=== PATIENT | female | born 1975 | race Caucasian/White ===

== ENCOUNTER 2025-07-14 19:59 | Outpatient (CLI) | payer OTHER, SELFPAY | END 2025-07-14 20:00 | disposition home or self-care (01) | LOC: AMB 07-16 09:41 | PROVIDERS: PCP Physician Assistant; Visit Provider Emergency Medicine Emergency Medical Services | DX: R07.89 Other chest pain (principal); R42 Dizziness and giddiness | CPT/HCPCS: A0425; A0427 ==

== ENCOUNTER 2025-07-14 20:28 | Observation (INO) | payer OTHER, SELFPAY ==
--- OUTSIDE RECORDS SUMMARY | 2025-06-25 15:00 | XMS_ITS | Encounter Summary ---
Author Organization [facility] Address [address] [place] [address] Care Team Providers Care Credit Product Analyst Name Role Phone Hilton Dean P.A.-C. Primary Care Provider Reason for Visit * Reason Comments Upper Respiratory Infection States she w as treated in May for sinus infection, she felt like it did not work was given a dose pack, that helped but feels like it never went away. She states it feels like it moved into her chest, states coughs up green nasty stuff like, noted x 2 days. Encounter Details Date Type Department Care Team (Late st Contact Info) Description 06/25/2025 3:00 PM CDT Office Visit Department of Family Medicine, [facility], in [place], [place] [address] [place] [address] Hilton Dean P.A.-C. [address] [place] [address] Sinusitis Chronic (Primary Dx); Costochondritis; Cough Unspecified Type; Herpes Simplex Labialis Social History Tobacco Use Types Packs/Day Years Used Date Smoking Tobacco: Never Smokeless Tobacco: Never Alcohol Use Standard Drinks/Week Comments Not Currently 0 (1 standard drink = 0.6 oz pure alcohol) occasional-2 drinks since , increases dizziness Humiliation, Afraid, Rape, and Kick questionnair e Answer Date Recorded Within the last year, have y ou been afraid of your partner or ex-partner? No 02/01/2022 Within the last year, have y ou been humiliated or emotionally abused in other ways by your partner or ex-partner? No Within the last year, have y ou been kicked, hit, slapped, or otherwise physically hurt by your partner or ex-partner? No 02/01/2022 Within the last year, have y ou been raped or forced to have any kind of sexual activity by your partner or ex-partner? No 02/01/2022 Hunger Vital Sign Answer Date Recorded Within the past 12 months, y ou worried that your food would run out before you got the money to buy more. Never true 02/02/20 22 Within the past 12 months, t he food you bought just didn't last and you didn't have money to get more. Never true 02/01/2022 PRAPARE - Transportation Answer Date Re corded In the past 12 months, has l ack of transportation kept you from medical appointments or from getting medications? No 11/2021 In the past 12 months, has l ack of transportation kept you from meetings, work, or from getting things needed for daily living? No 02/01/2022 Housing Stability Vital Sign Answer Nathaniel e Recorded In the last 12 months, was t here a time when you were not able to pay the mortgage or rent on time? No 02/01/2022 In the last 12 months, how many places have you lived? 1 02/01/2022 In the last 12 months, was t here a time when you did not have a steady place to sleep or slept in a correction (including now)? No 02/01/2022 Depression Answer Date Recor ded PHQ-9 Total Score (max 27) 1 11/14 Education Answer Date Recorded What is the highest level of school you have completed or the highest degree you have received? 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 - 06/25/2025 3:00 PM CDT SUBJECTIVE CHIEF COMPLAINT / REASON FOR VISIT Denise York is a 49 y.o. female who presents for evaluation of Upper Respiratory Infection (States she was treated in May for sinus infection, she felt like it did not work was given a dose pack, that helped but feels like it never went away. She states it feels like it moved into her chest, states coughs up green nasty stuff like, noted x 2 days.). HISTORY OF PRESENT ILLNESS Denise presented with a persistent cough, primarily worse in the mornings. She has a history of chronic sinusitis and was treated with Augmentin and a Medrol Dosepak approximately one month ago. Currently, her main symptom is cough. OBJECTIVE Vitals: 06/25/25 1449 BP: 107/65 BP Location: Right arm Patient Position: Sitting Cuff Size: Large Pulse: 98 Resp: 18 Temp: 36.3 ??C TempSrc: Temporal SpO2: 98% Weight: 57.6 kg Height: 167 cm Body mass index is 20.65 kg/m??. PHYSICAL EXAMINATION General: Patient appears in no acute distress. ENT: TMs no erythema. Throat no erythema. Neck: No lymphadenopathy. No thyroid masses. Heart: Regular rate and rhythm. No murmurs. Lungs: Clear to auscultation. ASSESSMENT / PLAN #1 Costochondritis I renewed her Flexeril that she uses as needed #2 Sinusitis Chronic We had a good discussion about this we talked about some different treatment options I am going to try some Zithromax because of her persistent cough to treat for possible atypical bacteria. She willcontinue with her chronic nasal decongestants and rinses #3 Cough Unspecified Type I am going to have her take some Zithromax take a Z-Bob as directed if her symptoms worsen or do not improve she will let us know #4 Herpes Simplex Labialis She has a small oral herpes lesion on her upper lip. I will give her some Valtrex a 1000 mg 3 timesa day. If her symptoms worsen or not improve she will let us know Hilton Dean P.A.-C. documented in this encounter Plan of Treatment Not on file documented as of this encounter Visit Diagnoses Diagnosis Sinusitis Chronic- Primary Costochondritis Cough Unspecified Type Herpes Simplex Labialis documented in this encounter Additional Health Concerns Assessment Noted Time PHQ-9 Depression Total Score: 1 11/14/19 20 10:10 AM DIAL MOUNTER documented as of this encounter Care Teams Credit Product Analyst Relationship Specialty Start Date End Date Hilton Dean P.A.-C. [address] [place] [phone] PCP - General Family Medicine 08/12/20 documented as of this encounter
--- OUTSIDE RECORDS SUMMARY | 2025-07-14 20:30 | XMS_ITS | Clinical Summary ---
Author Organization [facility] Address [address] [place] [address] Care Team Providers Care Shot Fireman Name Role Phone Hilton Dean P.A.-C. Primary Care Provider Source Comments Patient records contain information from all sites at [facility]. For routine questions regarding patient records, call [phone] during business hours, M-F 8:00 AM - 5:00 PM Central Time. Record requests for emergency care only can be directed to [phone] at any time.[facility] Allergies Active Allergy Reactions Criticality Noted Date Comments Buspirone Other (see comments) Medium 11/18/2010 dizzy Cat Dander Other (see comments) High 08/24/2011 Sneezing and runny nose. Itchy eyes. Venlafaxine Headache High 05/29/2019 Fluoxetine Other (see comments) Medium 08/31/2011 dizzy House Dust Mite Other (see comments) High 08/24/2011 Sneezing and runny nose. Itchy eyes. Medications * This document contains information received from the source organization and may not represent a complete record from that organization. cetirizine (ZyrTEC) 10 mg tablet Take 10 mg by mouth daily. Active albuterol 90 mcg/actuation inhaler Inhale 2 puffs every 4 (four) hours as needed for wheezing. 8 g 11 5 Active estradioL (Vivelle-Dot) 0.1 mg/[address] 1 patch on the skin 2 (two) times a week. 24 patch 3 5 12/27/19 26 Active levothyroxine 25 mcg tablet Take 1 tablet (25 mcg total) by mouth daily. 90 tablet 3 5 Active cyclobenzaprine (FlexeriL) 5 mg tabletIndicatio ns:Costochondri tis Take 1 tablet (5 mg total) by mouth at bedtime as needed for muscle spasms. 30 tablet 5 Active azithromycin (Zithromax) 250 mg tabletIndicatio ns:Sinusitis Chronic,Cough Unspecified Type Take 2 tabs (500 mg) by mouth today, then 1 tab (250 mg) daily for 4 days. 6 tablet 5 Active cyclobenzaprine (FlexeriL) 5 mg tabletIndicatio ns:Costochondri tis Take 1 tablet (5 mg total) by mouth at bedtime as needed for muscle spasms. 30 tablet 4 06/25/20 25 Discontinue d(Reorder) methylPREDNISol one (MedroL DosePak) 4 mg tablet Take as directed on package. 21 tablet 5 06/25/20 25 Discontinue d(Therapy completed) valACYclovir (Valtrex) 1000 mg tabletIndicatio ns:Herpes Simplex Labialis Take 1 tablet (1,000 mg total) by mouth 3 (three) times a day for 10 days. 30 tablet 5 07/05/20 25 Active Problems Problem Noted Date Diagnosed Date Hyperlipidemia 12/03/2020 Sinusitis Chronic 04/21/2020 Polyposis Nasal 04/21/2020 Migraine Headache Variant 06/06/2019 Hypothyroidism 11/09/2017 Rhinitis Allergic 04/25/2012 Resolved Problems Problem Noted Date Diagnosed Date Resolved Date Pain Chest Precordial 07/21/20212021 Gastroesophageal Reflux Disease 07/21/2021 12/21/2023 Migraine Headache With Typical Aura 06/06/2019 12/03/2020 Dizziness 05/21/2019 12/03/2020 Sinusitis Recurrent 12/12/2018 12/10/19 22 Palpitations 11/09/2017 12/09/2021 Overview (11/09/2017): History of intermittent palpitations. 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 Encounters Date Type Department Care Team Description 06/25/2025 3:00 PM CDT Office Visit Department of [facility], [address] [phone] Hilton Dean, P.A.-C. Sinusitis Chronic (Primary Dx); Costochondritis; Cough Unspecified Type; Herpes Simplex Labialis 06/04/2025 Orders Only Department of [facility], [address] [phone] Hilton Dean, PDallasA.-C. 05/29/2025 Orders Only Department of [facility], [address] [phone] Hilton Dean, P.A.-C. Sinusitis Chronic (Primary Dx); Sinusitis Acute from Last 3 Months Immunizations Immunization Administration Dates Next Due DT, Pediatric 02/05/1979, 6,02/21/1975,1973,1973 HepA Adult 11/02/2015,12/18/2013 HepB (discontinued) adolesce nt/high risk 08/31/2010,05/16/2008,04/18/2008 Influenza, Unspecified 07/09/2017,2015,06/29/2015,2013,07/05/2013,06/21/2012,06/23/2011,1 10/31/2009,08/15/2008,07/28/1998 MMR 04/01/1984,10/29/1974 OPV, Trivalent 02/05/1979, 6,02/21/1975,1973 PCV20 12/25/2024 PPD Test 04/18/2008 PPSV23 12/09/2021 SARS-COV-2 (COVID-19) - MODERNA(Discontinued) 12/21/2023(Deferred: Patient decision) SARS-COV-2 (COVID-19) - PFIZ ER (Discontinued)(12 years or older) 06/25/2021,10/28/2020,09/30/2020 SARS-COV-2 (COVID-19) - PFIZ ER BIVALENT TS(Discontinued)(12 YEARS OR OLDER) 06/21/2022 Td (Adult), adsorbed 07/30/2002 Tdap 09/21/2023,05/13/2013,05/26/2011 Tetanus Toxoid, Adsorbed (discontinued) 07/30/2002,03/29/1988 influenza LAIV (Nasal) (2 ye ars through 49 years) 07/27/2022 influenza trivalent vaccine (6 months and older)(PF) 07/16/2024 influenza vaccine quad (FLUZONE/FLUARIX) (6 months and older)(PF) 07/11/2023,07/27/2021,06/16/2020,2018 Family History Medical History Relation Name Comments No Known Problems Brother 1 Hydrocephalus Brother 2 Spina bifida Brother 2 No Known Problems Brother 3 Coronary artery disease Father Heart attack Father Prostate cancer Father in his 80s Tobacco Use Father Unknown Mother No Known Problems Son 1 No Known Problems Son 2 Relation Name Status Comments Brother 1 Brother 2 (Age 17) Brother 3 Father (Age 86) Mother Son 1 Son 2 Social History Tobacco Use Types Packs/Day Years Used Date Smoking Tobacco: Never Smokeless Tobacco: Never Tobacco Cessation:Counseling Given: No Alcohol Use Standard Drinks/Week Comments Not Currently [...] place to sleep or slept in a assisted (including now)? No 02/01/2022 Depression Answer Date Recor ded PHQ-9 Total Score (max 27) 1 11/14 Education Answer Date Recorded What is the highest level of school you have completed or the highest degree you have received? 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 Not on file Not on file Last Filed Vital Signs Vital Sign Reading [...] Mass Index 20.65 06/25/2025 2:49 PM CDT Plan of Treatment Health Maintenance Due Date Last Done Comments CT Colonography 1973 Colonoscopy 1973 FIT 1973 HIV Screening 1973 Hepatitis C Screening 1973 Zoster Vaccines (1 of 2) 2023 COVID-19 Vaccine (2024-2 6 season) 2025 06/21/2022, 06/25/2021, 10/28/2020, Additional history exists Influenza Vaccine (#1) 2025 , 07/11/2023, 07/27/2022, Additional history exists Mammogram 12/19/2025 12/19/2024, 11/30, 12/15/2022, Additional history exists Lipid (Cholesterol) Screening 12/23/2025, 12/19/2023, 12/06/2022, Additional history exists Thyroid Stimulating Hormone (TSH) test for thyroid function 12/23/2025 12/23/2024, 12/19/2023, 12/06/2022, Additional history exists Fasting Glucose for Diabetes Screening 12/24/2027 12/23/2024, 12/19/2023, 12/06/2022, Additional history exists Cologuard 03/07/2028 03/07/2025, 12/26/2021 Colorectal Cancer Screening 03/07/2028 DTaP,Tdap,and Td Vaccines (9 - Td or Tdap) 09/21/2033 09/21/2023, 05/13/2013, 05/26/2011, Additional history exists IPV Vaccines Completed 02/05/1979, 05/1976, 02/21/1975, Additional history exists Hepatitis B Vaccines Completed 08/31/2010, 05/16/2008, 04/18/2008 Hepatitis A Vaccines Completed 11/02/2015, 12/19/19 14 Depression Screening (Annual PHQ-2) Completed 12/25/2024, 12/25/2024 Pneumococcal vaccine (50+ years) Completed 12/26/19, 12/09/2021 Procedures Procedure Name Priority Date/Time Associated Diagnosis Comments COLOGUARD Routine 03/07/2025 10:00 AM CDT Screening Cancer Colon BASIC METABOLIC PANEL, S/P Routine 12/23/2024 6:53 AM CDT Hypothyroidism Hyperlipidemia Screening Examination Diabetes Mellitus LIPID PANEL, S Routine 12/23/2024 6:53 AM CDT Hypothyroidism Hyperlipidemia Screening Examination Diabetes Mellitus THYROID FUNCTION CASCADE, S Routine 12/23/2024 6:53 AM CDT Hypothyroidism Hyperlipidemia Screening Examination Diabetes Mellitus BI BREAST SCREENING BILATERAL WITH TOMOSYNTHESIS RAD - Routine (most inpatients and all outpatients) 12/19/2024 10:14 AM CDT Screening Mammogram Breast Cancer from Last 3 Months or Most Recently Relevant to Health Maintenance Results * Cologuard - Sent Out Lab (03/07/2025 10:00 AM CDT) Result Negative Negative 03/14/2025 10:16 AM CDT EX[facility] Comment: The Cologuard (TM) test was performed on this specimen. NEGATIVE TEST RESULT. A negative Cologuard result indicates a low likelihood that a colorectal cancer (CRC) or advanced adenoma (adenomatous polyps with more advanced pre-malignant features) is present. The chance that a person with a negative Cologuard test has a colorectal cancer is less than 1 in 1500 (negative predictive value >99.9%) or has an advanced adenoma is less than 5.3% (negative predictive value 94.7%). These data are based on a prospective cross-sectional study of 10,000 individuals at average risk for colorectal cancer who were screened with both Cologuard and colonoscopy. (Blanca Willson al, N Engl J Med 2014;370(14):6938-8140) The normal value (reference range) for this assay is negative. COLOGUARD RE-SCREENING RECOMMENDATION: Periodic colorectal cancer screening is an important part of preventive healthcare for asymptomatic individuals at average risk for colorectal cancer. Following a negative Cologuard result, the [place] Cancer Society and U.S. Multi-Society Task Force screening guidelines recommend a Cologuard re-screening interval of 3 years. References: [place] Cancer Society Guideline for Colorectal Cancer Screening: https://www.cancer.org/cancer/ewrvj-bdszhe-nczwhx/detection- diagnosis-staging/acs-recommendations.html.; Lázaro DK, Drea CR, Basil PaigeK, Colorectal Cancer Screening: Recommendations for Physicians and Patients from the U.S. Multi-Society Task Force on Colorectal Cancer Screening , Am J Gastroenterology 2017; 112:8070-8002. TEST DESCRIPTION: Composite algorithmic analysis of stool DNA-biomarkers with hemoglobin immunoassay. Quantitative values of individual biomarkers are not reportable and are not associated with individual biomarker result reference ranges. Cologuard is intended for colorectal cancer screening of adults of either sex, 45 years or older, who are at average-risk for colorectal cancer (CRC). Cologuard has been approved for use by the U.S. FDA. The performance of Cologuard was established in a cross sectional study of average-risk adults aged 50-84. Cologuard performance in patients ages 45 to 49 years was estimated by sub-group analysis of near-age groups. Colonoscopies performed for a positive result may find as the most clinically significant lesion: colorectal cancer [4.0%], advanced adenoma (including sessile serrated polyps greater than or equal to 1cm diameter) [20%] or non- advanced adenoma [31%]; or no colorectal neoplasia [45%]. These estimates are derived from a prospective cross-sectional screening study of 10,000 individuals at average risk for colorectal cancer who were screened with both Cologuard and colonoscopy. (Blanca Willson al, N Engl J Med 2014;370(14):6201-9584.) Cologuard may produce a false negative or false positive result (no colorectal cancer or precancerous polyp present at colonoscopy follow up). A negative Cologuard test result does not guarantee the absence of CRC or advanced adenoma (pre-cancer). The current Cologuard screening interval is every 3 years. ([place] Cancer Society and U.S. Multi-Society Task Force). Cologuard performance data in a 10,000 patient pivotal study using colonoscopy as the reference method can be accessed at the following location: www.[employer]/results. Additional description of the Cologuard test process, warnings and precautions can be found at www.[employer]an[employer].com. Stool (Stool) 03/07/2025 10: 00 AM CDT 03/08/2025 7:45 AM CDT us Hilton Dean P.A.-C. LAB BODY FLUIDS AND ST OOLS ORDERABLES Final Result [employer] [address] [place] [address] [facility] [address] [place] [address], [address] [place] [address] * (ABNORMAL) Lipid Panel (12/23/2024 6:53 AM CDT) Triglycerides 110 mg/dL 12/23/2024 8:06 AM CDT OW[facility] Comment: ----REFERENCE VALUE---- Normal: <150 mg/dL Borderline High: 150-199 mg/dL High: 200-499 mg/dL Very High: > or =500 mg/dL Cholesterol, Total 200(H) mg/dL 2024 8:06 AM CDT OWAT Comment: ----REFERENCE VALUE---- Desirable: < 200 mg/dL Borderline High: 200 - 239 mg/dL High: > or = 240 mg/dL Cholesterol, LDL, Calculated 133(H) mg/dL 12/23/2024 8:06 AM CDT OWAT Comment: ----REFERENCE VALUE---- Desirable: <100 mg/dL Above Desirable: 100-129 mg/dL Borderline High: 130-159 mg/dL High: 160-189 mg/dL Very High: >=190 mg/dL ----ADDITIONAL INFORMATION---- LDL cholesterol calculated using the Bolden/NIH equation. Cholesterol, HDL 47(L) >=50 mg/dL 12/24/19 8:06 AM CDT OWAT Cholesterol, Non-HDL, Calculated 153 mg/dL 12/23/2024 8:06 AM CDT OWAT Comment: ----REFERENCE VALUE---- Desirable: <130 mg/dL Above Desirable: 130-159 mg/dL Borderline High: 160-189 mg/dL High: 190-219 mg/dL Very High: > or =220 mg/dL Fasting (8 HR or more) Yes 12/23/2024 6:53 AM CDT OW[facility] Blood (Blood, Venous) 12/23/2024 6:53 AM CDT 12/23/2024 7:25 AM CDT us Hilton Dean P.A.-C. LAB BLOOD ADD-ON Final Result [facility] [address] [place] [id number], [facility] [place] [address] [place] [address] * Thyroid Function Weber (12/23/2024 6:53 AM CDT) TSH, Sensitive 2.3 0.3 - 4.2 mIU/L 12/23/2024 10:33 AM CDT OW[facility] Blood (Blood, Venous) 12/23/2024 6:53 AM CDT 12/23/2024 7:24 AM CDT us Hilton AllanTessie. LAB BLOOD ADD-ON Final Result [facility] [address] [place] [address], [facility] OWAT [facility] [place] [address] [place] [address] * Basic Metabolic Panel (12/23/2024 6:53 AM CDT) Potassium, P 3.9 3.6 - 5.2 mmol/L 12/23/2024 8:06 AM CDT OWAT Sodium, P 138 135 - 145 mmol/L 12/23/2024 8:06 AM CDT OWAT Chloride, P 100 98 - 107 mmol/L 12/23/2024 8:06 AM CDT OWAT Bicarbonate, P 25 22 - 29 mmol/L 12/23/2024 8:06 AM CDT OW[facility] Anion Gap, P 13 7 - 15 12/23/2024 8:06 AM CDT OWAT BUN (Blood Urea Nitrogen), P 18 6 - 21 mg/dL 12/23/2024 8:06 AM CDT OWAT Creatinine 0.75 0.59 - 1.04 mg/dL 12/23/2024 8:06 AM CDT OWAT Estimated GFR (eGFR) >90 >=60 mL/min/BSA 12/23/2024 8:06 AM CDT OWAT Comment: Estimated GFR calculated using the 2020 CKD_EPI creatinine equation. Calcium, Total, P 9.3 8.6 - 10.0 mg/dL 12/23/2024 8:06 AM CDT OWAT Glucose, P 107 70 - 140 mg/dL 12/23/2024 8:06 AM CDT OW[facility] Blood (Blood, Venous) 12/23/2024 6:53 AM CDT 12/23/2024 7:25 AM CDT us Hilton Dean P.A.-C. LAB BLOOD ADD-ON Final Result [facility] [address] [place] [address], [place] OW[facility] [place] [address] [place] [address] * BI Breast Screening Bilateral with Tomosynthesis (12/19/2024 10:14 AM CDT) Anatomical Region Laterality Modality Breast, Breast Imaging RST L OS, Breast Imaging ARZ LOS, Breast Imaging FLA LOS Bilateral Mammography Impressions 12/19/2024 12:54 PM CDT Negative. RECOMMENDATION: Annual Screening Mammogram ASSESSMENT: BI-RADS: 1: Negative. Narrative 12/19/2024 12:54 PM CDT EXAM: BI BREAST SCREENING BILATERAL WITH TOMOSYNTHESIS Current study was evaluated with a Computer Aided Detection (CAD) system. INDICATION: Screening mammogram. COMPARISON: Prior exam(s) were available and reviewed for comparison. DENSITY: c. The breast(s) are heterogeneously dense, which may obscure small masses. FINDINGS: No mammographic findings of malignancy. Procedure Note Randy Riggs M.D. - 12/19/2024 EXAM: BI BREAST SCREENING BILATERAL WITH TOMOSYNTHESIS Current study was evaluated with a Computer Aided Detection (CAD) system. INDICATION: Screening mammogram. COMPARISON: Prior exam(s) were available and reviewed for comparison. DENSITY: c. The breast(s) are heterogeneously dense, which may obscuresmall masses. FINDINGS: No mammographic findings of malignancy. IMPRESSION: Negative. RECOMMENDATION: Annual Screening Mammogram ASSESSMENT: BI-RADS: 1: Negative. Hilton Dean P.A.-C. IMG BI PROCEDURES Keiko l Result from Last 3 Months or Most Recently Relevant to Health Maintenance Insurance [employer] Care Teams Shot Fireman Relationship Specialty Start Date End Date Hilton Dean P.A.-C. [address] [place] [address] [employer] tanner [phone] PCP - General Family Medicine 08/12/20
--- OUTSIDE RECORDS SUMMARY | 2025-07-14 20:30 | XMS_ITS | Encounter Summary ---
Author Organization [facility] Address [address] [place] [address] Care Team Providers Care Forklift Truck Mechanic Name Role Phone Hilton Dean P.A.-C. Primary Care Provider Encounter Details Date Type Department Care Team (Late st Contact Info) Description 05/29/2025 Orders Only Department of Family Medicine, [facility], in [place], [place] [address] [place] [address] Hilton Dean P.A.-C. [address] [place] [address] Sinusitis Chronic (Primary Dx); Sinusitis Acute Social History Tobacco Use Types Packs/Day Years [...] place to sleep or slept in a detention (including now)? No 02/01/2022 Depression Answer Date Recor ded PHQ-9 Total Score (max 27) 1 11/14 Education Answer Date Recorded What is the highest level of school you have completed or the highest degree you have received? 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 [address] [place] [address] [place] [id number] PCP - General Family Medicine 08/12/20 documented as of this encounter
--- OUTSIDE RECORDS SUMMARY | 2025-07-14 20:30 | XMS_ITS | Clinical Summary ---
Author Organization [facility] Address [address] [place] [id number] Care Team Providers Care Bindery Chief Name Role Phone Ember Mckenzie NP Primary Car e Provider Allergies Active Allergy Reactions Criticality Noted Date Comments Buspirone Dizziness 12/09/2006 Cats (Fur, Dander, Saliva) 0 Dust Mites 09/07/2010 Fluoxetine Dizziness 08/31/2011 (Prozac) Medications fluticasone, 50 mcg per actuation, nasal (FLONASE) 50 mcg/Actuation nasal sprayIndication s:Allergic rhinitis, cause unspecified Inhale 2 Sprays into both nostrils once daily. 1 Bottle 11 1 Active levothyroxine (SYNTHROID) 25 mcg tablet TAKE ONE TABLET DAILY 30 tablet 1 2 Active montelukast (SINGULAIR) 10 mg tablet Take 10 mg by mouth at bedtime. As needed Active albuterol HFA (VENTOLIN HFA) 90 mcg/actuation inhaler Inhale 2 Puffs by mouth 4 times daily if needed. Active cetirizine (ZYRTEC) 10 mg tablet Take 10 mg by mouth once daily if needed. As needed Active ibuprofen (ADVIL; MOTRIN) 600 mg tablet Take 1 tablet by mouth every 6 hours. Maximum of 3200 mg in 24 hours. 40 tablet 5 Active HYDROcodone-damien taminophen, 5-325 mg, (NORCO) per tablet Take 1-2 tablets by mouth every 4 hours if needed for Pain. Max acetaminophen dose: 4000mg in 24 hrs. 30 tablet 0 5 Active triamcinolone (ARISTOCORT; KENALOG) 0.1 % cream Apply topically to affected area(s) on the neck, arms, legs, trunk and back 2 times daily for 2 weeks. 60 g 12/30/2015 10:47 AM CDT 6 Active fluconazole (DIFLUCAN) 150 mg tablet Take 1 tablet (150 mg total) by mouth once for 1 dose. 1 tablet 8 Active levothyroxine (SYNTHROID) 25 mcg tablet Take 1 tablet (25 mcg total) by mouth daily. 90 tablet 8 Active amoxicillin-cla vulanate 875-125 mg tablet (AUGMENTIN) Take 1 tablet by mouth 2 (two) times a day for 10 days. 20 tablet 8 Active levothyroxine (SYNTHROID) 25 mcg tablet Take 1 tablet by mouth once daily. 90 tablet 3 01/17/2018 9:38 AM CDT 8 Active methylPREDNISol one (MEDROL DOSEPAK) 4 mg tablet Take by mouth as directed on package for 6 days. 21 tablet 8 Active cephalexin (KEFLEX) 500 mg capsule Take 1 capsule by mouth 3 times daily for 7 days. 21 capsule 05/29/2018 12:10 PM CDT 8 Active azithromycin (ZITHROMAX) 500 mg tablet Take 1 tablet (500 mg total) by mouth daily for 5 days. 5 tablet 09/20/2018 12:41 PM TYPE CASTER 8 Active benzonatate (TESSALON) 100 mg capsuleIndicati ons:Cough Take 1 capsule by mouth 3 times daily if needed for cough. 42 capsule 10/24/2018 11:30 AM TYPE CASTER 9 Active azithromycin (ZITHROMAX) 250 mg tablet Take 500 mg (2 tablets) by mouth the first day then 250 mg (1 tablet) by mouth for 4 more days. 6 tablet 9 Active ondansetron (ZOFRAN) 4 mg tablet Take 1 tablet by mouth every 8 hours if needed for nausea or vomiting for up to 7 days. 20 tablet 11/02/2018 5:13 PM TYPE CASTER 9 Active cephalexin (KEFLEX) 500 mg capsule Take 1 capsule by mouth every 6 hours for 10 days. 40 capsule 11/09/2018 3:55 PM TYPE CASTER 9 Active sertraline (ZOLOFT) 50 mg tablet Take one-half tablet by mouth once daily for a week. Then increase to 1 tablet once daily if tolerated. 30 tablet 1 9 Active sertraline (ZOLOFT) 25 mg tabletIndicatio ns:Anxiety disorder Take 1 tablet (25 mg total) by mouth daily. 1/2 tab daily for a week the increase to a full tab daily if tolerated 30 tablet 1 01/04/2019 1:24 PM CDT 9 Active budesonide (PULMICORT RESPULES) 0.5 mg/2 mL neb suspension Add 1 respule to 8 ounces of saline and irragate each side of nose twice daily as directed. 120 mL 11 9 Active budesonide (PULMICORT RESPULES) 0.5 mg/2 mL neb suspension Administer 2 mL into affected nostril(s) 2 times a day. Add 1 ampule to 8 ounces saline and irrigate each side of nose twice daily as directed. 120 mL 11 05/15/2020 4:25 PM CDT 0 Active ammonium lactate 12% (LACHYDRIN) 12 % cream Apply 1 application topically 2 (two) times a day. 385 g 2 0 Active naproxen (NAPROSYN) 500 mg tabletIndicatio ns:Chondrocosta l junction syndrome (tietze) Take 1 tablet by mouth 2 times daily if needed for pain. 60 tablet 02/04/2020 12:05 PM CDT 0 Active fluticasone (50 mcg per actuation) nasal solution (FLONASE) Inhale 2 Sprays into both nostrils once daily if needed for rhinitis or allergies. 48 g 3 02/04/2020 12:05 PM CDT 0 Active predniSONE (DELTASONE) 10 mg tablet Take 3 tablets by mouth daily for 2 days, 2 tablets daily for 3 days, 1 tablet daily for 3 days, 1/2 tablet daily for 3 days. 18 tablet 03/03/2020 1:41 PM CDT 0 Active amoxicillin-cla vulanate 875-125 mg tablet (AUGMENTIN) Take 1 tablet by mouth 2 times daily with meals. 20 tablet 05/15/2020 1:44 PM CDT 0 Active cefdinir (OMNICEF) 300 mg capsule Take 1 capsule (300 mg total) by mouth every 12 (twelve) hours for 10 days. 20 capsule 0 Active predniSONE (DELTASONE) 20 mg tablet Take 2 tablets (40 mg total) by mouth once daily with breakfast for 7 days. 14 tablet 08/26/2020 2:17 PM TYPE CASTER 0 Active budesonide (PULMICORT RESPULES) 0.5 mg/2 mL neb suspension Administer 2 mL (0.5 mg total) into nostril(s) daily. Add 1 respule to 8 ounces saline and irrigate each side of nose twice daily as directed. 120 mL 11 03/30/2021 11:41 AM CDT 1 Active triamcinolone 0.025% topical (ARISTOCORT) 0.025 % cream Apply 1 application topically 2 times a day. 45 g 1 05/07/2021 1:32 PM CDT 1 Active cyclobenzaprine (FLEXERIL) 10 mg tablet Take 1 Tablet (10 mg) by mouth 3 times daily if needed for muscle spasms 15 Tablet 05/07/2021 1:32 PM CDT 1 Active amoxicillin-cla vulanate 875-125 mg tablet (AUGMENTIN) Take 1 tablet by mouth 2 (two) times a day. 20 Tablet 08/05/2022 4:10 PM CDT 2 Active predniSONE (DELTASONE) 20 mg tablet Take 2 tablets (40 mg total) by mouth daily. 10 Tablet 08/05/2022 4:10 PM CDT 2 Active montelukast (SINGULAIR) 10 mg tablet Take 1 tablet (10 mg total) by mouth at bedtime. 90 Tablet 01/26/2023 4:12 PM CDT 3 Active predniSONE (DELTASONE) 20 mg tablet Take 2 tablets (40 mg total) by mouth daily. 10 Tablet 01/26/2023 4:12 PM CDT 3 Active Active Problems Problem Noted Date Diagnosed Date Irregular menses 11/25/2014 Palpitations 11/13/2008 Unspecified hypothyroidism 01/03/2008 Allergic rhinitis, cause unspecified 04/27/2007 Unspecified asthma(493.90) 04/27/2007 Overview (04/27/2007): rare problems Mixed hyperlipidemia 10/02/1996 Anxiety state, unspecified Immunizations Immunization Administration Dates Next Due AMB Influenza, IIV3 (Age >=3 years)(Flu Clinic Only) 08/15/2008 DTP 02/05/1979, 6,02/21/1975,1973,1973 Hepatitis B (Adult) 08/31/2010,05/16/2008,2007 Influenza Virus, Unspecified 07/22/2014,07/08/20 09 Influenza, IIV3 (Age >=3 years) 06/21/2012,08/31,07/28/1998 MMR 04/01/1984,10/29/1974 Oral Polio Vaccine 02/05/1979, 6,02/21/1975,1973 Td (Age >=7 Years) 07/30/2002,03/29/1988 Tuberculin (PPD) 04/18/2008 Family History Medical History Relation Name Comments Asthma Brother 1 Other Brother 2 spina bifida Heart Disease Father d 86 yr old 67 yr old at patient's Unknown Mother b 1951 22yr old at patient's Relation Name Status Comments Brother 1 Brother 2 Father Mother Social History Tobacco Use Types Packs/Day Years Used Date Smoking Tobacco: Never Smokeless Tobacco: Never Tobacco Cessation:Counseling Given: Yes Comments: smokes outside Alcohol Use Standard Drinks/Week Comments Yes 0.8 (1 standard drink = 0.6 oz p ure alcohol) occ Comments No Sex and Gender Information Value Date Recorded Sex Assigned at Not on file Legal Sex Female 5:24 AM TYPE CASTER Gender Identity Not on file Sexual Orientation Not on file 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 Not on file Not on file Not on file Obstetrics History Para Term AB IAB SAB Ectopic Multiple Livin g Live Births 5 3 3 0 2 1 1 0 0 3 Date Outcome GA Total Labor Labor/2nd/3rd Weight Sex Type Anes PTL Stephanie A1 A5 Name Clin Term Term Term IAB SAB Comments x3 Last Filed Vital Signs Vital Sign Reading Time Taken Comments Blood Pressure 112/4 11/10/2018 1:24 PM TYPE CASTER Pulse 90 11/10/2018 1:24 PM TYPE CASTER Temperature 36.9 C (98.5 F) 11/26/2014 8:30 AM TYPE CASTER Respiratory Rate 16 11/26/2014 8:30 AM TYPE CASTER Oxygen Saturation 97% 11/10/2018 1:24 PM TYPE CASTER Inhaled Oxygen Concentration - - Weight 60.3 kg (133 lb) 11/10/2018 1:24 PM TYPE CASTER Height 167 cm (5' 5.75) 11/21/2014 8:02 AM TYPE CASTER Body Mass Index 21.63 11/21/2014 8:02 AM TYPE CASTER Plan of Treatment Health Maintenance Due Date Last Done Comments Depression screening for age 12+ 1985 HIV for age 15-65 1988 BMI (ht and wt on same day) for age 18+ 1991 Hepatitis C screening for ag e 18-79 1991 Tetanus booster 07/30/2012 07/30/2002, 03/29/1988 Pap test for age 21-65 05/19/2014 1, 05/19/2011, 05/06/2010, Additional history exists Colonoscopy through age 75 2018 Lipids for age 45-75 2018 04/29/2010, 05/14/2009, 03/04/2008, Additional history exists Mammogram for age 45-75 2018 Pneumococcal series for age 50+ (1 of 1 - PCV) 2023 Zoster (shingles) series for age 50+ (1 of 2) 2023 COVID-19 vaccine series ( - 2024- season) 2025 06/25/2021, 10/28/2020, 09/30/2020 Influenza Vaccine (#1) 2025 4, 06/21/2012, 08/31/2010, Additional history exists RSV vaccine for adults or (1 - 1-dose 75+ series) 2048 Hepatitis B series for 19+ Completed 08/31, 05/16/2008, 04/18/2008 Medical Devices Implanted Type Area Work Study Student Device Identifier Shelf Expiration Date Model / Serial / Lot Sys Control Essure Perm - [id number] Implanted:Qty: 1 on 09/02/2011 at [facility] [employer] 04/30/2014 [id number] / / [id number] Stent Ent Mini Steroid-Releas ing [employer] Bio[employer] - [id number] Implanted:Qty: 4 on 11/25/2014 by Robert Conde MD at [facility] Bilateral : Nose [employer] 02/23/2016 [id number]# / / [id number] Description:implant sites: 1 - left frontal; 1 - left sphenoid; 1 - right sphenoid; 1 - right frontal Stent Ent Reg Steroid-Releas ing [employer]orb - [id number] Implanted:Qty: 1 on 11/25/2014 at [facility] Left: Nose [employer] 02/10/2016 [id number] / / [id number] Description:implanted into l eft ethmoid Procedures Procedure Name Priority Date/Time Associated Diagnosis Comments GYNECOLOGICAL PANEL Timed 05/19/2011 1 0:30 AM CDT LIPID PANEL W REFLEX MEASURED LDL Routine 04/29/2010 8:44 AM CDT HYPERLIPIDEMIA MIXED from Last 3 Months or Most Recently Relevant to Health Maintenance Results * GYNECOLOGICAL PANEL (05/19/2011 10:30 AM CDT) CYTOLOGY CYTOPATHOLOGY REPORT [facility] Status: Final Status [id number] CLINICAL INFORMATION Last Date of LMP :April 30, 2011 Last Pap Date :05/2010 Last Pap Result :NORMAL [place]/Bx done today :No HPV Request :HPV and PAP. See Separate Report. SPECIMEN SOURCE :Cervical/vaginal ThinPrep Vial, screening SPECIMEN ADEQUACY :Satisfactory for evaluation Endocervical component present. INTERPRETATION/RES ULT Negative for intraepithelial lesion or malignancy (NIL) Cytology 1st Screener :albert Signed by :albert This specimen was screened by the FDA approved ThinPrep Imaging System and manually reviewed. NOTE: The Pap test is a screening technique, not a diagnostic procedure. It is used primarily to screen for squamous cancers and precursor lesions. Published studies have shown that it is subject to both false negative and false positive results. The pap test should not be used as the sole means to diagnose or exclude pre-malignant and malignant lesions. COLLECTED:05/19/11 ACCESSIONED: 05/20/11 SIGNED: 05/24/11 [facility] [place] CODE NIL [facility] 05/19/2011 10:3 0 AM CDT 05/20/2011 10:30 AM CDT us Ember Daly MD PATHOLOGY/CYTOLOGY Final Resu lt [facility] INTERNAL ZIP [id number] [place] [id number] * LIPID PANEL W REFLEX MEASURED LDL (04/29/2010 8:44 AM CDT) CHOLESTEROL,TOTAL 180 110 - 199 mg/dL [facility] TRIGLYCERIDES 120 <150 mg/dL [facility] HDL CHOLESTEROL 53 >40 mg/dL [facility] CHOL/HDL RATIO 3.40 <4.51 [facility] LDL CHOLESTEROL 103 <131 mg/dL [facility] PATIENT STATUS Fasting [facility] Blood specimen (specimen) BLOOD SPECIMEN / Unknown 04/29/2010 8:44 AM CDT 04/29/2010 8:40 AM CDT Nick Grant MD CHEMISTRY Final Re sult [facility] [address] [place] [address] from Last 3 Months or Most Recently Relevant to Health Maintenance Insurance [employer] PLAN [facility] Advance Directives * Full Code (Latest Code Status on File) Date Activated Date Inactivated Comments 11/25/2014 9:13 AM 11/26/2014 1:05 PM * Full Code Date Activated Date Inactivated Comments 05/22/2013 10:01 AM 05/22/2013 4:08 PM * Full Code Date Activated Date Inactivated Comments 09/02/2011 5:55 AM 09/02/2011 12:06 PM Care Teams Bindery Chief Relationship Specialty Start Date End Date Ember Mckenzie NP [address] [facility] [place] [address] PCP - General Nurse Practitioner 11/07/16
--- OUTSIDE RECORDS SUMMARY | 2025-07-14 20:30 | XMS_ITS | Encounter Summary ---
Author Organization [facility] Address [address] [place] [address] Care Team Providers Care Wall And Floor Tiler Name Role Phone Hilton Dean P.A.-C. Primary Care Provider Encounter Details Date Type Department Care Team (Late st Contact Info) Description 06/04/2025 Orders Only Department of Family Medicine, [facility], in [place], [place] [address] [place] [address] Hilton Dean P.A.-C. [address] [place] [address] Social History Tobacco Use Types Packs/Day Years [...] place to sleep or slept in a usp (including now)? No 02/01/2022 Depression Answer Date Recor ded PHQ-9 Total Score (max 27) 1 11/14 Education Answer Date Recorded What is the highest level of school you have completed or the highest degree you have received? 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 CASEY: [id number] [address] [place] [id number] PCP - General Family Medicine 08/12/20 documented as of this encounter
[2025-07-14 20:33] VITALS: BP 138/89; PULSE 109; RESP 18; TEMP 37.1; O2SAT 97; BMI 20.7
--- NOTE | 2025-07-14 21:40 | ED.GENADULT ---
HPI - General Adult General Chief complaint: Anxiety Stated complaint: chest pain Time Seen by Provider: 07/14/25 20:34 Related Data Home Medications ?Medication ?Instructions ?Recorded ?Confirmed levothyroxine 25 mcg tablet 25 mcg PO DAILY 07/14/25 07/14/25 Allergies Allergy/AdvReac Type Severity Reaction Status Date / Time buspirone (From BuSpar) AdvReac Dizziness Verified 07/14/25 20:39 fluoxetine (From Prozac) AdvReac Dizziness Verified 07/14/25 20:39 venlafaxine (From Effexor) AdvReac Dizziness Verified 07/14/25 20:39 Exam Const: Vital Signs, click to edit/add: Vital Signs - 24 hr 07/14/25 20:33 07/14/25 22:36 Temperature 98.7 F Pulse Rate [Pulse Oximeter] 109 H 78 Respiratory Rate 18 16 Blood Pressure [Ri ght Upper Arm] 138/89 138/90 H Pulse Oximetry 97 98 Oxygen Delivery Me thod Room Air Room Air Course Vital Signs Vital signs: Initial Vital Signs Temperature 98.7 F 07/14/25 20:33 Temperature Source Temporal Artery Scan 07/14/25 20:33 Pulse Rate 109 H 07/14/25 20:33 Respiratory Rate 18 07/14/25 20:33 Blood Pressure 138/89 07/14/25 20:33 Blood Pressure Mean 105 07/14/25 20:33 Blood Pressure Position Sitting 07/14/25 20:33 Pulse Oximetry 97 07/14/25 20:33 Oxygen Delivery Method Room Air 07/14/25 20:33 Vital Signs Temperature 98.7 F 07/14/25 20:33 Pulse Rate 109 H 07/14/25 20:33 Respiratory Rate 18 07/14/25 20:33 Blood Pressure 138/89 07/14/25 20:33 Pulse Oximetry 97 07/14/25 20:33 Oxygen Delivery Method Room Air 07/14/25 20:33 Temperature 98.7 F 07/14/25 20:33 Pulse Rate 78 07/14/25 22:36 Respiratory Rate 16 07/14/25 22:36 Blood Pressure 138/90 H 07/14/25 22:36 Pulse Oximetry 98 07/14/25 22:36 Oxygen Delivery Method Room Air 07/14/25 22:36 Medications Administered Medications: Discontinued Medications Generic Name Dose Route Start Last Admin Trade Name Freq PRN Reason Stop Dose Admin Meclizine HCl 25 mg 07/14/25 21:21 07/14/25 22:29 Meclizine Hcl 25 Mg Tablet PO 07/14/25 21:22 25 mg ONCE ONE Administration Ondansetron HCl 4 mg 07/14/25 21:21 07/14/25 22:29 Ondansetron Odt 4 Mg Tab PO 07/14/25 21:22 4 mg ONCE ONE Administration Medical Decision Making MDM Narrative Medical decision making narrative: This patient comes in reporting vertigo and heart palpitations with some brief chest discomfort. She also has weakness in the proximal muscles of her legs bilaterally. Her neurologic exam is completely normal except she was unable to raise either leg off of the bed. She does not report any dysuria or altered bowel symptoms and has no saddle anesthesia. I did check sphincter tone which appeared to be normal. I did have the patient attempt to get up and ambulate. She was able to stand but did so with much difficulty. I spoke with the neurologist on-call at [facility] who recommended MRI of the head, lumbar spine and thoracic spine in the morning. The patient did receive oral doses of Zofran and meclizine. She is not reporting any further vertigo symptoms. I did speak with the hospitalist on-call here, Dr. Xiao, who agrees to her admission for these plans to occur. Lab Data Labs: Lab Results 07/14/25 07/14/25 Range/Units 21:31 22:05 WBC 9.39 (4.50-11.00) K/uL RBC 4.04 (4.00-5.20) m/uL Hgb 12.3 (12.0-16.0) gm/dL Hct 37.7 (33.0-51.0) % MCV 93 (80-100) fL MCH 30 (26-34) pg MCHC 33 (32-36) gm/dL RDW Coeff of Caleb 12.6 (11.5-15.5) % Plt Count 322 (140-440) K/uL Neut % (Auto) 56.8 (42.0-72.0) % Lymph % (Auto) 28.5 (20-44) % Bertie % (Auto) 9.2 (0.0-11.0) % Eos % (Auto) 4.5 (0.0-7.0) % Baso % (Auto) 0.4 (0.0-3.0) % Neut # (Auto) 5.33 (1.7-7.0) K/uL Lymph # (Auto) 2.68 (0.90-2.90) K/uL Bertie # (Auto) 0.90 (0.00-0.90) K/UL Eos # (Auto) 0.42 (0.00-0.50) K/uL Baso # (Auto) 0.04 (0.00-0.30) K/uL Abs Immat Gran (auto) 0.06 (0.00-0.30) K/uL Imm/Tot Granulo (auto) 0.6 % Sodium 132 L (135-149) mmol/L Potassium 3.7 (3.6-5.1) mmol/L Chloride 102 (96-114) mmol/L Carbon Dioxide 24 (20-32) mmol/L Anion Gap 6 L (7-15) mEq/L BUN 14 (7-30) mg/dL Creatinine 0.6 (0.5-1.5) mg/dL Estimated Creat Clear 101.67 Estimated GFR 109 ml/min Glucose 119 H (60-115) mg/dL Calcium 8.4 (8.4-10.6) mg/dL C-Reactive Protein < 0.5 L (0.5-1.0) mg/dL POC Troponin I 0.01 (0.01-0.04) ng/ml ECG Data Attestation: I personally reviewed and interpreted this ECG as follows: Interpretation: Sinus tachycardia, rate 101 beats per minute. There are no specific ST or T-wave abnormalities. Discharge Plan Discharge Clinical Impression: Weakness, Vertigo Patient Disposition: Admitted As Observation Condition: Unchanged
[2025-07-14 22:23] LABS: Troponin, Point-of-Care* 0.01 ng/ml (0.01-0.04)
[2025-07-14] MEDS: MECLIZINE HCL 25 MG TABLET PO (22:29)
[2025-07-14] MEDS: ONDANSETRON ODT 4 MG TAB PO (22:29)
[2025-07-14 22:30] LABS: Hematocrit* 37.7 % (33.0-51.0); Hemoglobin* 12.3 gm/dL (12.0-16.0); Immature Granulocytes Abs Auto 0.06 K/uL (0.00-0.30); Immature Granulocytes Pct Auto 0.6 %; Lymphocytes Absolute Auto 2.68 K/uL (0.90-2.90); Mean Corpuscular HGB Conc 33 gm/dL (32-36); Mean Corpuscular Hemoglobin 30 pg (26-34); Mean Corpuscular Volume 93 fL (80-100); RDW Coefficient of Variation % 12.6 % (11.5-15.5); Red Blood Count* 4.04 m/uL (4.00-5.20); White Blood Count* 9.39 K/uL (4.50-11.00)
[2025-07-14 22:32] LABS: Slide Review Reflex No
[2025-07-14 22:33] LABS: Chloride* 102 mmol/L (96-114); Sodium* 132 mmol/L (135-149)
[2025-07-14 22:34] LABS: Potassium* 3.7 mmol/L (3.6-5.1)
[2025-07-14 22:36] VITALS: BP 138/90; PULSE 78; RESP 16; O2SAT 98
[2025-07-14 22:36] LABS: Blood Urea Nitrogen* 14 mg/dL (7-30); Creatinine* 0.6 mg/dL (0.5-1.5); Est. Creatinine Clearance* 101.67; Estimated Glomerular Filt Rate 109 ml/min
[2025-07-14 22:37] LABS: Anion Gap 6 mEq/L (7-15); Calcium* 8.4 mg/dL (8.4-10.6); Carbon Dioxide* 24 mmol/L (20-32); Glucose* 119 mg/dL (60-115)
[2025-07-14 23:00] LABS: Creatine Kinase* 69 U/L (41-117)
[2025-07-14 23:25] VITALS: BP 126/63; PULSE 67; RESP 16; TEMP 36.6; O2SAT 98
--- NOTE | 2025-07-15 00:02 | PM.IMHP1 ---
Assessment and Plan Assessment and plan (1) Weakness: Problem comment: - Bilateral hip flexor weakness associated with pain and tightness in anterior thighs near groin. Symptoms appear to be fluctuating as I witnessed her able to lift both legs off the floor and hold them up above a 90 angle for 20 seconds while getting out of bed. CK, troponin, BMP, CRP, WBC reassuring. - Differential includes central versus peripheral process versus conversion disorder vs other. - Tick borne panel ordered - Due to pain at back of head/neck now (no nuchal rigidity), and nurse reported patient was off when talking about her family and situation, will obtain CT head without contrast tonight. If she becomes febrile or develops nuchal rigidity, could consider LP or repeat neuro consult as well. Neuro recommended MR brain wo contrast and MRA thoracic and lumbar spine in am. I was able to order MR brain, but thoracic and lumbar MRA will need to be discussed with radiology in am before ordering. - q4h neurochecks - PT and OT consulted Status: Acute (2) Vertigo: Problem comment: Resolved with meclizine and zofran. I have ordered these prn. Obtain imaging as above. Status: Acute (3) Hypothyroidism: Problem comment: Continue home dose of levothyroxine. Status: Chronic Hospitalist- H&P: HPI History of Present Illness Time Seen by Provider: 00:11 Date Seen: 07/15/25 Chief complaint: chest pain Narrative: Denise York is a 49 year old female with h/o anxiety and hypothyroidism who presented through the ER for bilateral thigh flexor weakness. 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 She has noted a little bit of low back pain for the last 4-5 days that started radiating off to the left today and then down her left thigh. Her is also in the hospital here and she brought him a few things this afternoon after work and then went home to have supper. She laid down at 7:00 p.m. just after supper but started having vertigo so she went outside and sat on a bench out front and called her son. He came around 715 or 720 and she tried to stand up to Greet him, but was unable to get off the bench feeling that her anterior thighs were tight and weak. Then she panicked and started feeling palpitations. The panicky feeling and palpitations have resolved, but she continues to have difficulty lifting her legs off the bed. She said they feel very heavy. She denies any recent travel. She does golf outside frequently, almost daily. Last week she went for a hike at the [employer]. She denies any numbness or tingling, difficulty with urination or bowel movements. Dr. Juan from the emergency department reported to me over the phone that he had spoken with [facility] neurologist on-call who recommended an MRI brain without contrast in the morning and an MRA of the thoracic and lumbar spines in the morning as well as a rectal exam; Dr. Martinez told me that he did the rectal exam and she had good rectal tone. While I was seeing this patient on the floor, she needed to use the bathroom. I suggested that we call for the nurse to help her out of bed and get her there, she repeatedly told me that she could do it herself despite me saying that it may be unsafe given that she has difficulty lifting her legs off the bed. While we were waiting for the nurse to come, she swung her legs out of bed on her own and was hovering her thighs and knees up above her hips with her feet a few inches above the floor and did so several times for about 20 seconds each time. I then watched her walk with a walker and the nurse giving standby assistance on her way to the bathroom. Review of Systems Status of ROS: Reports: 10 or more systems reviewed and unremarkable except as noted in History and below Medical Decision Making Medical Decision Making Code Status: Full code Has patient completed a Health Care Directive: No During This Stay, Who Would You Like To Make Decisions For You In The Event You Are Unable To Make Them For Yourself?: , Oscar York [facility] Medical History (Updated 07/15/25 @ 00:55 by Sonia Xiao MD) Irregular menses ?N92.6 - Irregular menstruation, unspecified (ICD-10) Palpitations ?R00.2 - Palpitations (ICD-10) Hypothyroidism ?E03.9 - Hypothyroidism, unspecified (ICD-10) Asthma ?J45.909 - Unspecified asthma, uncomplicated (ICD-10) Allergic rhinitis ?J30.9 - Allergic rhinitis, unspecified (ICD-10) Anxiety ?F41.9 - Anxiety disorder, unspecified (ICD-10) Mixed hyperlipidemia ?E78.2 - Mixed hyperlipidemia (ICD-10) Surgical History (Updated 07/15/25 @ 00:01 by Sonia Xiao MD) H/O wisdom tooth extraction ?K08.409 - Partial loss of teeth, unspecified cause, unspecified class (ICD-10) H/O sinus surgery ?Z98.890 - Other specified postprocedural states (ICD-10) H/O colonoscopy ?Z98.890 - Other specified postprocedural states (ICD-10) Family History (Updated 07/15/25 @ 00:02 by Sonia Xiao MD) Brother Asthma Father Heart disease Brother Spina bifida Social History (Updated 07/15/25 @ 00:38 by Sonia Xiao MD) 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 Denies tobacco or alcohol use. Meds Home Medications and Allergies Home Medications ?Medication ?Instructions ?Recorded ?Confirmed ?Type levothyroxine 25 mcg tablet 25 mcg PO DAILY 07/14/25 07/14/25 History Home Medication Comments: Estradiol patch changed twice a week Allergies Allergy/AdvReac Type Severity Reaction Status Date / Time buspirone (From BuSpar) AdvReac Dizziness Verified 07/14/25 20:39 fluoxetine (From Prozac) AdvReac Dizziness Verified 07/14/25 20:39 venlafaxine (From Effexor) AdvReac Dizziness Verified 07/14/25 20:39 Exam Narrative: Exam Narrative: General: No acute distress. Awake alert oriented x3. HEENT: Normocephalic atraumatic, pupils equally round and reactive to light and accommodation. Oropharynx clear. Mucous membranes are moist. No cervical lymphadenopathy. No JVD. Cardiovascular: Regular rate and rhythm. No murmurs, gallops, or rubs. Chest: No increased work of breathing. Clear to auscultation bilaterally. No crackles or wheezes. Back: No deformity. No nuchal rigidity. Left SI joint tender to palpation, which reproduces her pain in left thigh. Otherwise back is nontender to palpation. Abdomen: Bowel sounds present. Soft, nondistended, nontender. No hepatosplenomegaly or masses. Extremities: No edema, no cyanosis or clubbing. Skin: No jaundice, no pallor, no rashes on visible skin. Neuro: Gait is slow, but she walked to BR with SBA. Cranial nerves 2-12 are intact. Extraocular movements are full. No nystagmus. No facial asymmetry. Tongue is midline. Peripheral vision and vision are grossly intact. Strength is 5/5 in all 4 extremities. She was able to hold both legs up off the floor when she swung them out of bed to use the bathroom. Light touch sensation is intact in face body and extremities. Const: Vital Signs, click to edit/add: Vital Signs - 24 hr 07/14/25 20:33 07/14/25 22:36 Temperature 98.7 F Pulse Rate [Pulse Oximeter] 109 H 78 Respiratory Rate 18 16 Blood Pressure [Ri ght Upper Arm] 138/89 138/90 H Pulse Oximetry 97 98 Oxygen Delivery Me thod Room Air Room Air Hospitalist - H&P: Result Labs Labs: Short CBC 07/14/25 Range/Units 22:05 WBC 9.39 (4.50-11.00) K/uL Hgb 12.3 (12.0-16.0) gm/dL Hct 37.7 (33.0-51.0) % Plt Count 322 (140-440) K/uL BMP 07/14/25 22:05 Sodium 132 L Potassium 3.7 Chloride 102 Carbon Dioxide 24 BUN 14 Creatinine 0.6 Glucose 119 H Calcium 8.4 Cardiac Enzymes 07/14/25 Range/Units 22:05 Total Creatine Kinase 69 (41-117) U/L 07/14/2025 EKG: Sinus tachycardia, 101 beats per minute, otherwise normal EKG.
[2025-07-15 00:10] VITALS: PULSE 67
--- NOTE | 2025-07-15 00:33 | CRLHL7_ITS ---
For Patients: As a result of the Century Cures Act, medical imaging exams and procedure reports are released immediately into your electronic medical record. You may view this report before your referring provider. If you have questions, please contact your health care provider. INDICATION: Vertigo, neck headache, bilateral lower extremity weakness, neck pain TECHNIQUE: CT Head without i.v. contrast. Coronal and sagittal reformats were obtained. COMPARISON: None FINDINGS: CSF space: The ventricles are normal for age. Brain: No evidence of mass, acute infarction or hemorrhage is seen. No mass-effect or midline shift is seen. The brain parenchyma is otherwise normal in appearance with preservation of the azul-white matter junction. Calvarium: There is mucosal thickening in the maxillary sinuses with bilateral ethmoidectomies. The mastoid air cells are clear. The visualized orbits are grossly unremarkable. The calvarium is unremarkable in appearance with no fractures identified. IMPRESSION: 1. No evidence of acute infarction, intracranial hemorrhage, or mass-effect seen. Please note that all CT scans at this facility use dose modulation, iterative reconstruction, and/or weight-based dosing when appropriate to reduce radiation dose to as low as reasonably achievable. Dictated by: Rush Shields MD @ 07/15/2025 01:16:02 (Electronically Signed)
[2025-07-15 01:17] LABS: Appearance Urine Clear (Clear)
[2025-07-15 01:25] LABS: Cannabinoid Screen Urine POSITIVE (Negative); Methamphetamines Screen Urine Negative (Negative); Tricyclic Antidepressant Urine Negative (Negative)
[2025-07-15 04:25] VITALS: PULSE 67
[2025-07-15 04:45] VITALS: BP 104/65; PULSE 67; PULSE 74; RESP 14; TEMP 36.4; O2SAT 98
[2025-07-15] MEDS: LEVOTHYROXINE 25 MCG TABLET PO (06:31)
--- NOTE | 2025-07-15 07:05 | PC.NURSE ---
End of shift report: Pt was admitted to the floor at 2325. AxOx4. VSS. Denies pain. When pt was admitted, she stated, ?her legs felt heavy? and had difficulty lifting them up while in bed. At 0400 neuros patient reported that the heaviness has subsided and she did have much improvement with lifting up her legs. MRI Questionnaire completed. Pt ambulates 1A, GB, W. ?Call light within reach.
[2025-07-15 07:25] VITALS: PULSE 65
[2025-07-15 08:05] VITALS: BP 109/69; PULSE 69; RESP 16; TEMP 36.7; O2SAT 98
[2025-07-15 08:51] LABS: Ethanol* < 0.01 % (0.01-0.03)
--- NOTE | 2025-07-15 11:08 | PM.DS1 ---
DS: Providers Provider Date Seen: 07/15/25 Date of admission: 07/14/25 23:29 Primary care physician: Hilton Dean PA-C Admitting Clinician: Sonia Xiao MD Consults: 07/15/25 00:10 Consult to Occupational Therapy [CONS] Routine Comment: Reason(s) for OT Consult:: Evaluate and Treat Any Restrictions?:: No Restrictions Consult to Physical Therapy [CONS] Routine Comment: Reason(s) for PT Consult:: Evaluate and Treat Any Restrictions?:: No Restrictions Attending Physician on discharge: DICK Jessica, CAMILLA [place] Hospitalist Date of Discharge: 07/15/25 DS: Diagnosis Discharge Diagnosis (1) Weakness: Status: Resolved Problem details: - Bilateral hip flexor weakness associated with pain and tightness in anterior thighs near groin. Symptoms appear to be fluctuating as I witnessed her able to lift both legs off the floor and hold them up above a 90 angle for 20 seconds while getting out of bed. CK, troponin, BMP, CRP, WBC reassuring. - Differential includes central versus peripheral process versus conversion disorder vs other. - Tick borne panel ordered - Due to pain at back of head/neck now (no nuchal rigidity), and nurse reported patient was off when talking about her family and situation, will obtain CT head without contrast tonight. If she becomes febrile or develops nuchal rigidity, could consider LP or repeat neuro consult as well. Neuro recommended MR brain wo contrast and MRA thoracic and lumbar spine in am Weakness has completely resolved overnight, prior to discharge. As noted, patient was not experiencing full weakness or paralysis as documented by my colleague. She reports low back pain ongoing for some time now. She has noted radiating pains into her right leg as well as her left leg at times, occurring separately, and intermittently. She has also had neck pain for some time. She denies any new or recent trauma or injuries. She reports taking Flexeril for these pains - most recently 2 Flexeril on Monday while golfing and drinking alcohol and again 1 Flexeril on Monday. She has not tried physical therapy for these in the past. The weakness she experienced of the lower legs was new and has now completely resolved. Physical therapy and occupational therapy were both consulted. On my exam as well as therapies exams, no deficits were noted. We discussed recommendation for further imaging while inpatient. Unfortunately, we do not do spinal MRAs, as recommended by [facility], at this facility. Patient would prefer not to proceed with inpatient MRI of the thoracic and lumbar spine at this time as her symptoms have completely resolved. Instead, she will follow-up outpatient for further imaging if deemed necessary. As for other etiology, Lyme titer remains pending at time of discharge. Outdoors quite a bit, golfs regularly. Carbon monoxide level is pending though low suspicion (reports furnace has been running efficiently for the past week or so without concerns). Has been experiencing increased stressors lately. ETOH <0.01 in ED. UDS positive THC. Recommend close outpatient follow-up with PCP 2-3 days. (2) Vertigo: Status: Resolved Problem details: As stated below, patient reports vertiginous symptoms are chronic a as a part of her vestibular migraines. No worse than usual. Resolved with meclizine and zofran. Deferred brain MRI to outpatient setting if needed given resolution of symptoms prior to discharge, as discussed with patient. (3) Vestibular migraine: Status: Chronic Problem details: Patient reports a history of vestibular migraines with symptoms not unlike those that have occurred with this hospitalization. Reports vertiginous symptoms are routine. Has reported no new or worsening symptoms. We discussed option for brain MRI but patient would like to delay this to the outpatient setting if needed as her symptoms which brought her into the hospital have since resolved. (4) Hypothyroidism: Status: Chronic Problem details: Continue home dose of levothyroxine. TSH added prior to discharge, pending. DS: Summary Hospital Course Hospital Course: Course of care and details as noted above. As above, weakness and vertiginous symptoms have resolved prior to discharge. Patient has declined further inpatient imaging, opted for outpatient imaging if symptoms return or worsen. Close outpatient follow-up with PCP. Status at Discharge Functional status at discharge: independent ambulation Overall status at discharge: patient is back to baseline Time Spent with Patient Time attestation: Total time spent providing and/or coordinating discharge services: Time spent: Greater than 30 minutes Exam Narrative: Exam Narrative: PHYSICAL EXAM General: Pleasant, conversant, NAD Cardiovascular: RRR Pulmonary: No dyspnea Neurological: Alert, answering questions appropriately, strength UE/LE 5/5 equal bilaterally, no focal findings Skin: Warm, dry. Const: Vital Signs, click to edit/add: Vital Signs - 24 hr 10/13/25 20:33 07/14/25 22:36 07/14/25 23:25 Temperature 98.7 F 97.9 F Pulse Rate Pulse Rate [Left P ulse Oximeter] 67 Pulse Rate [Pulse Oximeter] 109 H 78 Respiratory Rate 18 16 16 Blood Pressure [Ri ght Arm] 126/63 Blood Pressure [Ri ght Upper Arm] 138/89 138/90 H Pulse Oximetry 97 98 98 Oxygen Delivery Me thod Room Air Room Air Room Air 07/14/25 23:25 07/15/25 00:10 07/15/25 04:25 Temperature Pulse Rate 67 Pulse Rate [Left P ulse Oximeter] 67 Pulse Rate [Pulse Oximeter] Respiratory Rate 16 Blood Pressure [Ri ght Arm] Blood Pressure [Ri ght Upper Arm] Pulse Oximetry 98 Oxygen Delivery Me thod Room Air 07/15/25 04:45 07/15/25 04:45 07/15/25 07:25 Temperature 97.6 F Pulse Rate 65 Pulse Rate [Left P ulse Oximeter] 74 67 Pulse Rate [Pulse Oximeter] Respiratory Rate 14 Blood Pressure [Ri ght Arm] 104/65 Blood Pressure [Ri ght Upper Arm] Pulse Oximetry 98 Oxygen Delivery Me thod Room Air 07/15/25 08:05 07/15/25 08:05 Temperature 98.1 F Pulse Rate Pulse Rate [Left P ulse Oximeter] 69 Pulse Rate [Pulse Oximeter] Respiratory Rate 16 16 Blood Pressure [Ri ght Arm] 109/69 Blood Pressure [Ri ght Upper Arm] Pulse Oximetry 98 98 Oxygen Delivery Me thod Room Air Room Air DS: Data Data Completed and Pending Labs on day of discharge: Labs from last 24 hours 07/15/25 07/15/25 07/15/25 11:03 08:25 06:20 WBC RBC Hgb Hct MCV MCH MCHC RDW Coeff of Caleb Plt Count Neut % (Auto) Lymph % (Auto) [place] % (Auto) Eos % (Auto) Baso % (Auto) Neut # (Auto) Lymph # (Auto) [place] # (Auto) Eos # (Auto) Baso # (Auto) Abs Immat Gran (auto) Imm/Tot Granulo (auto) Sodium Potassium Chloride Carbon Dioxide Anion Gap BUN Creatinine Estimated Creat Clear Estimated GFR Glucose Calcium Total Creatine Kinase C-Reactive Protein TSH Pending Urine Color Urine Appearance Urine pH Ur Specific [place] Urine Protein Urine Glucose (UA) Urine Ketones Urine Blood Urine Nitrite Urine Bilirubin Urine Urobilinogen Ur Leukocyte Esterase Urine RBC Urine WBC Ur Squamous Epith Cells Urine Bacteria Urine Opiates Screen Ur Oxycodone Screen Urine Methadone Screen Ur Barbiturates Screen U Tricyclic Antidepress Ur Phencyclidine Scrn Ur Amphetamines Screen U Methamphetamines Scrn U Benzodiazepines Scrn Urine Cocaine Screen U Marijuana (THC) Screen Ur Drug Screen Comment Ethyl Alcohol A. phagocytophilum DNA Pending Babesia Species (PCR) Pending Lyme Disease Antibody Pending E.ewingii/canis DNA PCR Pending E. muris-like DNA (PCR) Pending Babesia microti (PCR) Pending E. chaffeensis (PCR) Pending Lab Acknowledgement Test Added Test Added POC Troponin I 07/15/25 07/14/25 07/14/25 01:00 22:05 21:31 WBC 9.39 RBC 4.04 Hgb 12.3 Hct 37.7 MCV 93 MCH 30 MCHC 33 RDW Coeff of Caleb 12.6 Plt Count 322 Neut % (Auto) 56.8 Lymph % (Auto) 28.5 [place] % (Auto) 9.2 Eos % (Auto) 4.5 Baso % (Auto) 0.4 Neut # (Auto) 5.33 Lymph # (Auto) 2.68 [place] # (Auto) 0.90 Eos # (Auto) 0.42 Baso # (Auto) 0.04 Abs Immat Gran (auto) 0.06 Imm/Tot Granulo (auto) 0.6 Sodium 132 L Potassium 3.7 Chloride 102 Carbon Dioxide 24 Anion Gap 6 L BUN 14 Creatinine 0.6 Estimated Creat Clear 101.67 Estimated GFR 109 Glucose 119 H Calcium 8.4 Total Creatine Kinase 69 C-Reactive Protein < 0.5 L TSH Urine Color Yellow Urine Appearance Clear Urine pH 7.5 Ur Specific [place] 1.010 Urine Protein Negative Urine Glucose (UA) Negative Urine Ketones Negative Urine Blood Trace-intact A Urine Nitrite Negative Urine Bilirubin Negative Urine Urobilinogen 0.2 Ur Leukocyte Esterase Negative Urine RBC 0-2 Urine WBC 0-2 Ur Squamous Epith Cells Few Urine Bacteria Few A Urine Opiates Screen Negative Ur Oxycodone Screen Negative Urine Methadone Screen Negative Ur Barbiturates Screen Negative U Tricyclic Antidepress Negative Ur Phencyclidine Scrn Negative Ur Amphetamines Screen Negative U Methamphetamines Scrn Negative U Benzodiazepines Scrn Negative Urine Cocaine Screen Negative U Marijuana (THC) Screen POSITIVE A Ur Drug Screen Comment See Note Ethyl Alcohol < 0.01 A. phagocytophilum DNA Babesia Species (PCR) Lyme Disease Antibody E.ewingii/canis DNA PCR E. muris-like DNA (PCR) Babesia microti (PCR) E. chaffeensis (PCR) Lab Acknowledgement POC Troponin I 0.01 Preliminary micro results at discharge 07/15/25 01:00 Urine Culture - Preliminary Urine,Clean Catch Culture in Progress Imaging CT scan - head: Attestation: I have reviewed the pertinent imaging results. Radiologist's impression: CSF space: The ventricles are normal for age. Brain: No evidence of mass, acute infarction or hemorrhage is seen. No mass-effect or midline shift is seen. The brain parenchyma is otherwise normal in appearance with preservation of the azul-white matter junction. Calvarium: There is mucosal thickening in the maxillary sinuses with bilateral ethmoidectomies. The mastoid air cells are clear. The visualized orbits are grossly unremarkable. The calvarium is unremarkable in appearance with no fractures identified. IMPRESSION: 1. No evidence of acute infarction, intracranial hemorrhage, or mass-effect seen. Discharge Plan Discharge Disposition: Home, Self-Care Date of Admission: 07/14/25 23:29 Attending Provider on Discharge: Apple Jones Primary Care Provider: Hilton Dean Condition: Improved Anticipated Discharge Date/Time: 07/15/25 11:02 Discharge Medications: Continued levothyroxine 25 mcg tablet 25 mcg PO DAILY Discharge Orders: Discharge Order (Routine); Ordered 07/15/25 Ordered By: Apple Jones Additional Instructions: Recommend following up with your primary care provider in the clinic in the next 2-3 days for re-evaluation following your hospitalization. Monitor your headaches for new or worsening symptoms which would require re-evaluation. Discuss ongoing low back pain and consider physical therapy referral. Consider outpatient MRI. Activity Level: Activity as Tolerated Discharge Diet: Regular Follow Up Appointments: Brittney Tomlin, LUMBER BEARER, ASSISTANT PROFESSOR SCULPTURE, DNP [Referring, Family Practice] - 07/18/25 1:15 pm Referral Note: [facility] for hospital follow-up. Primary wasn't available. Roethler,Hilton, PA-C [Primary Care Provider, Family Practice] Referral Note: Forms: Patient Belongings, MyHealth Info Instructions
[2025-07-15 11:43] LABS: Carboxyhemoglobin* 2.2 % (0.0-5.0)
[2025-07-17 15:39] LABS: Lyme ELISA Reflex 0.37 IV (<=0.90)
[2025-07-17 22:28] LABS: Anaplasma phagocyt PCR Not Detected
== END 2025-07-15 13:16 | disposition home or self-care (01) ==
LOC: ED 23:01 → MEDSURG 23:29
PROVIDERS: Physician Assistant; Admitting Provider Family Medicine; Emergency Provider Emergency Medicine Emergency Medical Services; PCP Physician Assistant; Visit Provider Family Medicine
DX: R53.1 Weakness (principal); R42 Dizziness and giddiness; E03.9 Hypothyroidism, unspecified; G43.019 Migraine without aura, intractable, without status migrainosus
CPT/HCPCS: 36415; 70450; 80048; 80306; 81001; 82077; 82375; 82550; 84443; 84484; 85025; 86140; 86618; 87086; 87468; 87469; 87484; 87798; 97116; 97161; 97165; 99284; 99285; A9270; G0378